=== PATIENT | male | born 1990 | race Two or more races ===

== ENCOUNTER 2019-10-17 13:39 | Emergency (ER) | payer SELFPAY ==
[~2019-10-17] VITALS: Ht 170.2 cm; Wt 79.4 kg
[2019-10-17 18:03] VITALS: BP 141/90
== END 2019-10-17 17:23 | disposition home or self-care (01) ==
LOC: ER 13:39
DX: J40 Bronchitis, not specified as acute or chronic (principal)
CPT/HCPCS: 87070; 87804; 87880